=== PATIENT | female | born 1970 | race Two or more races ===

== ENCOUNTER 2020-05-24 20:52 | Emergency (ER) | payer BC, MEDICAID ==
[~2020-05-24] VITALS: Ht 167.6 cm; Wt 77.0 kg
[2020-05-24 21:10] VITALS: BP 132/72
== END 2020-05-25 | disposition left against medical advice (07) ==
LOC: ER 20:52
DX: M79.602 Pain in left arm (principal); M25.512 Pain in left shoulder; Z53.21 Procedure and treatment not carried out due to patient leaving prior to being seen by health care provider
CPT/HCPCS: 93005